=== PATIENT | male | born 2000 | race Caucasian/White ===

== ENCOUNTER 2020-12-05 04:15 | Emergency (ER) | payer OTHER ==
[~2020-12-05] VITALS: Ht 177.8 cm; Wt 63.5 kg
[~2020-12-05 04:15] MED LIST: CODACE30 PO; CRUTCH4 USE; VICODIN 5-3001 EACH PO
== END 2020-12-05 07:04 | disposition home or self-care (01) ==
LOC: ER 04:15
DX: S01.01XA Laceration without foreign body of scalp, initial encounter (principal); Z79.899 Other long term (current) drug therapy; W25.XXXA Contact with sharp glass, initial encounter
CPT/HCPCS: 12002; 70450; 99283-25